=== PATIENT | male | born 1950 | race Caucasian/White ===

== ENCOUNTER 2018-03-10 21:12 | Emergency (ER) | payer BC ==
[~2018-03-10] VITALS: Ht 167.6 cm; Wt 68.0 kg
[2018-03-10] MEDS ORDERED: MORPHINE SULFATE 2 MG/1 ML DISP.SYRIN IV ONE (21:45)
[2018-03-10] MEDS ORDERED: NEOMY/BACITRA/POLYMYXIN B OINT UD PACKET TP ONE ×2 (21:45→22:11)
[2018-03-10] MEDS ORDERED: ONDANSETRON 4 MG/2 ML VIAL IV ONE (21:45)
[2018-03-10] MEDS ORDERED: SWABABLE VALVE TRANSFER SET EA MC ONE (21:58)
[2018-03-10] MEDS ORDERED: NORMAL SALINE FLUSH 10 ML DISP.SYRIN ONE (21:58)
[2018-03-10] MEDS ORDERED: IOHEXOL 350 100 ML INFUS..BTL ONE (21:58)
[2018-03-10] MEDS ORDERED: IV NORMAL SALINE 250 ML IV ONE (21:58)
[2018-03-10 22:06] LABS: BASOPHILS # (AUTO) 0.1 K/uL (0.0-8.0); BASOPHILS % (AUTO) 0.3 % (0.0-2.0); EOSINOPHILS # (AUTO) 0.1 K/uL (0.0-0.7); EOSINOPHILS % (AUTO) 0.3 % (0.0-7.0); HEMATOCRIT 42.7 % (36.7-47.1); HEMOGLOBIN 14.4 g/dL (12.5-16.3); LYMPHOCYTES % (AUTO) 34.5 % (20.5-51.5); MEAN CORPUSCULAR HEMOGLOBIN 29.8 uug (23.8-33.4); MEAN CORPUSCULAR HGB CONC 34 g/dL (32.5-36.3); MEAN CORPUSCULAR VOLUME 88.6 fL (73.0-96.2); MONOCYTES # (AUTO) 1.1 K/uL (2.0-10.0); MONOCYTES % (AUTO) 3.9 % (0.0-11.0); NEUTROPHILS # (AUTO) 17.6 K/uL (1.8-8.9); PLATELET COUNT (AUTO) 210 K/uL (152-348); RED BLOOD CELL COUNT(AUTO) 4.82 MIL/uL (4.06-5.63); WHITE BLOOD COUNT (AUTO) 28.9 K/uL (3.6-10.2)
[2018-03-10] MEDS ORDERED: ONDANSETRON 4 MG/2 ML VIAL ONE (22:11)
[2018-03-10] MEDS ORDERED: TDAP DIPH,PERTUSS,TET VAC/PF 0.5 ML DISP.SYRIN IM ONE (22:12)
[2018-03-10] MEDS ORDERED: MORPHINE SULFATE 2 MG/1 ML DISP.SYRIN ONE (22:12)
[2018-03-10 22:16] LABS: CREATININE 1.3 mg/dL (0.6-1.3)
--- NOTE | 2018-03-10 22:17 | NUR ---
CYBER OPERATOR AT BEDSIDE
[2018-03-10] MEDS: TDAP DIPH,PERTUSS,TET VAC/PF 0.5 ML DISP.SYRIN IM ONE ×2 (22:20→23:00)
[2018-03-10 22:21] LABS: BILIRUBIN,DIRECT 0.2 mg/dL (0.0-0.2)
--- NOTE | 2018-03-10 22:44 | NUR ---
PT'S ARRIVES TO BEDSIDE
[2018-03-10] MEDS ORDERED: IV NORMAL SALINE 1000 ML BAG IV ONE (23:00)
--- NOTE | 2018-03-10 23:07 | NUR ---
PT IN ROUTE TO CT IN [place] W/ TRANSPORTER
[2018-03-10] MEDS ORDERED: LET TOPICAL SOLUTION 8 ML UDC ONE (23:43)
[2018-03-10] MEDS ORDERED: LET TOPICAL SOLUTION 8 ML UDC TP ONE (23:45)
--- NOTE | 2018-03-11 00:38 | NUR ---
Transport to arrive in 30 min for transfer to [facility] for higher level of care.
--- NOTE | 2018-03-11 00:43 | NUR ---
Called 911 for transport to transfer pt to [facility].
--- NOTE | 2018-03-11 00:52 | NUR ---
PT IN ROUTE TO [facility] WITH ADAM RA [phone]
--- NOTE | 2018-03-11 00:55 | NUR ---
REPORT GIVEN TO JULIAN ED NURSEGEMA
--- NOTE | 2018-03-11 00:58 | NUR ---
Yulia zapata in [facility] - 03/11/18 at 0104 by JENNIFER PT RETURNS FROM CT IN [place] WITH TRANSPORTER
== END 2018-03-11 00:55 | disposition short-term general hospital (02) ==
LOC: ER 21:13
DX: S22.43XA Multiple fractures of ribs, bilateral, initial encounter for closed fracture (principal); S36.113A Laceration of liver, unspecified degree, initial encounter; S81.011A Laceration without foreign body, right knee, initial encounter; S61.210A Laceration without foreign body of right index finger without damage to nail, initial encounter; S61.412A Laceration without foreign body of left hand, initial encounter; M20.022 Boutonniere deformity of left finger(s); F17.200 Nicotine dependence, unspecified, uncomplicated; V49.9XXA Car occupant (driver) (passenger) injured in unspecified traffic accident, initial encounter; Y93.89 Activity, other specified; Y92.410 Unspecified street and highway as the place of occurrence of the external cause; Y99.8 Other external cause status
CPT/HCPCS: 29130; 36415; 70450; 71260; 72040; 72125; 73130; 73140; 73564; 74177; 80048; 80076; 84484; 85025; 85730; 86850; 86900; 86901; 90471; 90715; 93005; 96374; 96375; 99291; A4217 ×2; A4663; J2270; J2405; J3490; J7030; J7050; Q9967; 70030-TC